=== PATIENT | female | born 1965 | race Caucasian/White ===

== ENCOUNTER → 2017-01-12 | Day surgery (SDC) | payer OTHER ==
[~2017-01-12] VITALS: Ht 165.1 cm; Wt 91.2 kg
[~2017-01-12] MED LIST: AMARYL1 M1 PO; CRESTOR10 M1 PO; FENOFIBRATE; JANUVIA100 M1 PO; LOSARTAN POTAS100 M1 PO; METFORMIN HCL1000 M1 PO; METOPROLOL TART50 M1 PO; [UNRECOGNIZED DRUG - OTHER]
--- NOTE | 2017-01-12 12:37 | Operative Report ---
Operative/Inv Procedure Report Surgery Date: 01/12/17 Name of Procedure: urethral sling, cystoscopy Pre-Operative Diagnosis: stress incontinence Post-Operative Diagnosis: same Estimated Blood Loss: 250cc Surgeon/Parts Sales Advisor: RBI FUENTES MD Anesthesia: local monitored anesthesi Implants: vaginal mesh Drains: none Specimens: none Complications: none Condition: stable Operative Indication: stress incontinence Operative/Procedure Note Note: Operative dictation on patient Sissy Yee. She was identified in the holding area and consented for a urethral sling. She was given the risks benefits and alternatives of the surgery. All questions were answered. Questions regarding vaginal mesh were addressed as well. Patient was taken to the operating room placed on the operating table in supine position. Once timeout was performed and IV antibiotics namely sedation were initiated. She was placed in the dorsal lithotomy position and prepped and draped in the standard sterile fashion. Zuniga catheter was placed and the bladder was emptied. Zuniga the patient's abdomen. Suburethral 1% lidocaine with epinephrine was infiltrated into the anterior vaginal wall. Incision was made and vaginal flaps are created taking care not to injure the urethra. The Altis Sling kit was then used to place the sling trochars provided. First on the patient's left side than the right. The Prolene tightening suture was then used to tighten the suture to a tension-free manner. This was cut and there area was copiously irrigated. The incision was closed with 3-0 Vicryl running suture. There was no mesh in the vaginal fornices. A cystoscopy was performed the bladder was globally inspected. There was no abnormalities appreciated in the bladder. No mesh was seen and the ureteral orifices were in the normal anatomic location. The bladder was emptied and the cystoscope was removed. The vagina was packed with 2 inch vaginal packing impregnated with bacitracin ointment. Sponge and needle count were correct at the end the case. Findings: no mesh in bladder. urethra or vaginal fornices Discharge Disposition: PACU
== END ==
LOC: STS 03:23
DX: N39.3 Stress incontinence (female) (male) (principal); E11.9 Type 2 diabetes mellitus without complications; Z79.84 Long term (current) use of oral hypoglycemic drugs; I10 Essential (primary) hypertension; K21.9 Gastro-esophageal reflux disease without esophagitis; E66.9 Obesity, unspecified
CPT/HCPCS: C1771; J0690; J2250